=== PATIENT | female | born 1970 | race Hispanic/Latino ===

== ENCOUNTER 2018-07-26 11:57 | Emergency (ER) | payer BC, SELFPAY ==
[2018-07-26 12:53] LABS: Hemoglobin 13.8 g/dL (12.0-16.0); Red Blood Cell (RBC) Count 4.56 mill/uL (4.20-5.40); White Blood Cell (WBC) Count 8.2 thou/uL (4.8-10.8)
[2018-07-26 12:54] LABS: #Basophils 0.1 thou/uL (0.0-0.2); #Eosinphils 0.1 thou/uL (0.0-0.7); #Lymphocytes 2.4 thou/uL (1.20-3.40); #Monocytes 0.5 thou/uL (0.11-0.59); #Neutrophils 5.1 thou/uL (1.40-6.50); %Basophils 0.6 % (0.0-1.0); %Eosinophils 1.5 % (0.0-10.0); %Lymphocytes 29.2 % (21.0-51.0); %Monocytes 6.3 % (0.0-10.0); %Neutrophils 62.4 % (42.0-75.0); Mean Corpuscular HGB CONC 32.2 g/dL (32.0-36.0); Mean Corpuscular Hemoglobin 30.3 pg (27.0-31.0); Mean Corpuscular Volume 94.1 fL (78.0-98.0); Platelet Count 296 thou/uL (130-400); RBC Distribution Width 11.5 % (11.5-14.5)
[2018-07-26 12:57] LABS: ALT (SGPT) 13 U/L (8-55); AST (SGOT) 12 U/L (5-34); Albumin 4.4 g/dL (3.5-5.0); Alkaline Phosphatase 56 U/L (40-150); Anion Gap 10 mmol/L (10-20); BUN (Urea Nitrogen) 13 mg/dL (7.0-18.7); Bilirubin, Total 0.5 mg/dL (0.2-1.2); Calc. Creatinine Clearance 0 mL/min (70-130); Calcium 9.5 mg/dL (7.8-10.44); Carbon Dioxide 26 mmol/L (22-29); Chloride 103 mmol/L (98-107); Estimated GFR-MDRD 78; Globulin 3.6 g/dL (2.4-3.5); Glucose 132 mg/dL (70-105); Potassium 3.5 mmol/L (3.5-5.1); Sodium 135 mmol/L (136-145)
[2018-07-26 13:38] LABS: Bilirubin Negative (Negative); Blood, Urine Small (Negative); Glucose, Urine (Dipstick) Negative (Negative); Leukocyte Negative (Negative); Nitrite Negative (Negative); Protein, Urine (Dipstick) Negative (Neg-Trace); Urobilinogen 0.2 mg/dL (0.2-1.0)
[2018-07-26 13:42] LABS: Clarity Clear (Clear); Specific Gravity, Urine 1.006 (1.002-1.036)
[2018-07-26] MEDS ORDERED: Meclizine HCl 25 MG TAB ONE (13:49)
[2018-07-26 14:06] LABS: Bacteria/HPF 1+ HPF (None Seen); RBC/HPF 0-3 HPF (0-3); Squamous Epithelial 0-3 HPF (0-3); WBC/HPF 0-3 HPF (0-3)
[2018-07-26 14:07] LABS: Crystals/HPF RARE SODIUM URATE HPF (Negative)
--- NOTE | 2018-07-27 12:40 | EKG ---
Test Reason : Blood Pressure : / mmHG Vent. Rate : 083 BPM Atrial Rate : 083 BPM P-R Int : 128 ms QRS Dur : 098 ms QT Int : 380 ms P-R-T Axes : 030 021 023 degrees QTc Int : 446 ms Normal sinus rhythm Normal ECG Confirmed by LYNDA WEBSTER, TYE Shay ([id number]), senior technical editor JOSSY GUDINO ([id number]) on 07/27/2018 12:40:45 PM Referred By: Confirmed By:TYE HOWELL MD
== END 2018-07-26 14:01 | disposition home or self-care (01) ==
LOC: ERS 11:57
DX: F43.0 Acute stress reaction (principal); E03.9 Hypothyroidism, unspecified; R42 Dizziness and giddiness; Z79.899 Other long term (current) drug therapy
CPT/HCPCS: 80053; 81003; 81015; 84443; 85025; 93005

== ENCOUNTER 2020-05-12 18:49 | Emergency (ER) | payer SELFPAY ==
[2020-05-12] MEDS ORDERED: Boostrix 0.5 ML VIAL ONE (19:22)
== END 2020-05-12 19:45 | disposition home or self-care (01) ==
LOC: ERS 18:49
DX: S01.111A Laceration without foreign body of right eyelid and periocular area, initial encounter (principal); E78.5 Hyperlipidemia, unspecified; E78.2 Mixed hyperlipidemia; Z23 Encounter for immunization; W01.190A Fall on same level from slipping, tripping and stumbling with subsequent striking against furniture, initial encounter
CPT/HCPCS: 90715

== ENCOUNTER 2024-08-22 11:22 | Outpatient (CLI) | payer OTHER | END 2024-08-22 11:23 | disposition home or self-care (01) | LOC: BICRAD 11:22 | DX: M19.041 Primary osteoarthritis, right hand (principal) ==

== ENCOUNTER 2025-03-08 10:55 | Outpatient (CLI) | payer OTHER | END 2025-03-08 10:56 | disposition home or self-care (01) | LOC: SCSMRI 10:55 | PROVIDERS: ATTEND Family Medicine | DX: M54.42 Lumbago with sciatica, left side (principal); M47.816 Spondylosis without myelopathy or radiculopathy, lumbar region; M47.817 Spondylosis without myelopathy or radiculopathy, lumbosacral region | CPT/HCPCS: 72148 ==

== ENCOUNTER 2025-07-25 14:57 | Outpatient (CLI) | payer OTHER | END 2025-07-25 14:58 | disposition home or self-care (01) | LOC: BICRAD 14:57 | PROVIDERS: ATTEND Internal Medicine | DX: Z02.71 Encounter for disability determination (principal); M47.816 Spondylosis without myelopathy or radiculopathy, lumbar region; M19.041 Primary osteoarthritis, right hand | CPT/HCPCS: 72100 ==